=== PATIENT | male | born 1935 | race Caucasian/White ===

== ENCOUNTER 2017-02-21 14:38 | Emergency (ER) | payer MEDICARE, BC ==
[~2017-02-21] VITALS: Ht 180.3 cm; Wt 90.0 kg
[~2017-02-21 14:38] MED LIST: AVOD0.5C PO; DEXI60CA3 PO; DILA2TAB4 PO; FERR324T4 PO; LORA-392 PO; PRAV40TA PO; SULF-154 PO; TAMS0.4C67 PO; TOPR100T15 PO
[2017-02-21 14:41] VITALS: BP 137/69; PULSE 100; RESP 20; TEMP 97.6; O2SAT 95
--- NOTE | 2017-02-21 14:51 | PD ---
Physical Exam Time Seen by Provider: 14:51 Narrative 81 Y/O sent here by urgent care. he has a cough. he had an xray which shows "possible pleural effusion and enlarged aortic arch." Vital signs reviewed. Seen at triage desk. Awaiting bed placement. Data Data Last Documented VS Vital Signs Date Time Temp Pulse Resp B/P Pulse Ox O2 Delivery O2 Flow Rate FiO2 02/21/17 14:41 97.6 100 20 137/69 95 Room Air [facility] Medical Record Reviewed: Yes Supervised Visit with EZEQUIEL: Quentin Cleveland Feb 21, 2017 14:51
--- NOTE | 2017-02-21 16:18 | PD ---
HPI Chief Complaint: Respiratory Symptoms Time Seen by Provider: 16:15 Travel History International Travel<30 days: No Contact w/Intl Traveler<30days: No Traveled to known affect area: No History of Present Illness HPI 81-year-old male that presents to the ED for evaluation of congestion and shortness of breath. Per patient she's had cough and congestion for the past 2 weeks. Per patient he went to see an urgent care and was evaluated and was told that he possibly had pneumonia because his lungs sounded abnormal on his left lower quadrant. Per patient he was started on Levaquin at the time. He follow-up with his doctor who recommended another dose of Levaquin for 5 more days as well as prednisone. Per patient she chronically takes Ventolin because he has a history of asthma. He denies any chest pain. Per patient he went again today to see the urgent care as he continues to have this coughing spells and shortness of breath that don't really go away as well as the congestion and he had a chest x-ray and was told that there might be a pleural effusion as well as an abnormal or the on his chest x-ray. Patient was sent here for evaluation. He denies any medical issues. He denies any blood thinner use. No falls or injuries. No sick contacts. No fevers chills or sweats. No history of heart disease as far as he knows. He does have multiple allergies to medications. PFSH Past Medical History Arthritis: No Blood Disorders: No Anxiety: Yes Heart Rhythm Problems: Yes (TACHY) Cancer: Yes (COLON CURRENTLY) Cardiac Catheterization: Yes (DR ABDIRASHID CORONA) Cardiovascular Problems: Yes High Cholesterol: Yes Chemotherapy: No Diabetes: No Diminished Hearing: No Endocrine: No GERD: Yes Glaucoma: No Genitourinary: Yes Hepatitis: No Hiatal Hernia: No Hypertension: Yes Immune Disorder: No Implanted Vascular Access Dvce: Yes Musculoskeletal: No Neurologic: No Psychiatric: Yes Reproductive: No Respiratory: No Myocardial Infarction: Yes (CARDIAC ARREST DURING KNEE SURG) Radiation Therapy: No Thyroid Disease: No Past Surgical History Abdominal Surgery: Yes (LAP. DARREN) Cardiac Surgery: No Ear Surgery: No Endocrine Surgery: No Eye Surgery: No Genitourinary Surgery: Yes (PROSTATE THERM. RX) Gynecologic Surgery: No Joint Replacement: Yes (LEFT KNEE - ) Oral Surgery: No Pacemaker: No Thoracic Surgery: No Social History Alcohol Use: No Tobacco Use: No Substance Use: No Allergies-Medications (Allergen,Severity, Reaction): Coded Allergies: Meropenem (Unverified Allergy, Severe, 11/07/11) Penicillin (Unverified Allergy, Severe, PERIORAL SWELLING, 11/07/11) Percocet (Verified Allergy, Severe, 11/07/11) Lortab (Verified Allergy, Intermediate, SWOLLEN LIP, 11/07/11) Shellfish (Verified Allergy, Intermediate, SWOLLEN LIP, 11/07/11) Tobramycin (Verified Allergy, Intermediate, DIARRHEA, 11/07/11) ALL MYCINS Uncoded Allergies: mycins (Allergy, Intermediate, 05/07/08) Reported Meds & Prescriptions Reported Meds & Active Scripts Active Prednisone 20 Mg Tab 20 Mg PO BID Guaifenesin AC Liq (Guaifenesin-Codeine Liq) 100-10 Mg/5 Ml Syrp 5 Ml PO Q6H PRN Azithromycin 250 Mg Tab 250 Mg PO DIRECTED Take 2 tabs (500 mg) on day 1 then 1 tab daily x 4 days. Reported Septra Ds (Trimethoprim/Sulfamethoxazole) Tab 1 Tab PO BID Dilaudid (Hydromorphone HCl) 2 Mg Tab 2-4 Mg PO Q4HPRN Flomax (Tamsulosin HCl) 0.4 Mg Cap 0.4 Mg PO HS Ferrous Sulfate 325 Mg Tab 325 Mg PO DAILY Dexilant 60 mg (Dexlansoprazole) 60 Mg Cap 60 Mg PO DAILY Avodart (Dutasteride) 0.5 Mg Cap 0.5 Mg PO DAILY Ativan (Lorazepam) 0.5 Mg Tab 0.5 Tab PO Q6HPRN Pravachol 40 Mg Tab 40 Mg PO DAILY Toprol XL (Metoprolol Succinate) 100 Mg Tab 100 Mg PO DAILY Review of Systems Except as stated in HPI: all other systems reviewed are Neg Physical Exam Narrative GENERAL: Well-nourished, well-developed patient in no apparent distress. SKIN: Warm and dry. HEAD: Atraumatic. Normocephalic. EYES: Pupils equal and round reactive to light and accommodation. No scleral icterus. No injection or drainage. ENT: No nasal bleeding or discharge. Mucous membranes pink and moist. TMs are clear with no sign of infection or perforation. No mastoid tenderness. Ear canals are intact bilaterally. No lymphadenopathy. Nostril mucosa is red and moist with clear mucus noted. No sinus tenderness to palpation noted. Tonsils are not enlarged or swollen. No ulvua Deviation. Tongue is midline. NECK: Trachea midline. No JVD. No meningeal signs noted CARDIOVASCULAR: Regular rate and rhythm. RESPIRATORY: No accessory muscle use. Mild rales heard in the left lower lung field. Breath sounds equal bilaterally. GASTROINTESTINAL: Abdomen soft, non-tender, nondistended. Hepatic and splenic margins not palpable. MUSCULOSKELETAL: Extremities without clubbing, cyanosis, or edema. No obvious deformities. NEUROLOGICAL: Awake and alert. No obvious cranial nerve deficits. Motor grossly within normal limits. Five out of 5 muscle strength in the arms and legs. Normal speech. PSYCHIATRIC: Appropriate mood and affect; insight and judgment normal. Data Data Last Documented VS Vital Signs Date Time Temp Pulse Resp B/P Pulse Ox O2 Delivery O2 Flow Rate FiO2 02/21/17 16:33 Room Air 02/21/17 16:30 88 18 130/75 95 02/21/17 14:41 97.6 Orders Complete Blood Count With Diff (02/21/17 15:28) Basic Metabolic Panel (Bmp) (02/21/17 15:28) B-Type Natriuretic Peptide (02/21/17 15:28) Magnesium (Mg) (02/21/17 15:28) Chest, Single Ap (02/21/17 15:28) Labs Laboratory Tests Test 02/21/17 15:49 White Blood Count 7.0 TH/MM3 Red Blood Count 4.71 MIL/MM3 Hemoglobin 13.9 GM/DL Hematocrit 42.5 % Mean Corpuscular Volume 90.2 FL Mean Corpuscular Hemoglobin 29.5 PG Mean Corpuscular Hemoglobin 32.7 % Concent Red Cell Distribution Width 15.2 % Platelet Count 183 TH/MM3 Mean Platelet Volume 7.6 FL Neutrophils (%) (Auto) 74.1 % Lymphocytes (%) (Auto) 14.6 % Monocytes (%) (Auto) 7.4 % Eosinophils (%) (Auto) 3.2 % Basophils (%) (Auto) 0.7 % Neutrophils # (Auto) 5.2 TH/MM3 Lymphocytes # (Auto) 1.0 TH/MM3 Monocytes # (Auto) 0.5 TH/MM3 Eosinophils # (Auto) 0.2 TH/MM3 Basophils # (Auto) 0.0 TH/MM3 CBC Comment DIFF FINAL Differential Comment Sodium Level 140 MEQ/L Potassium Level 4.2 MEQ/L Chloride Level 108 MEQ/L Carbon Dioxide Level 24.6 MEQ/L Anion Gap 7 MEQ/L Blood Urea Nitrogen 14 MG/DL Creatinine 1.13 MG/DL Estimat Glomerular Filtration 62 ML/MIN Rate Random Glucose 99 MG/DL Calcium Level 8.5 MG/DL Magnesium Level 2.3 MG/DL B-Type Natriuretic Peptide 12 PG/ML MDM Medical Decision Making Medical Screen Exam Complete: Yes Emergency Medical Condition: Yes Medical Record Reviewed: Yes Interpretation(s) CBC & BMP Diagram 02/21/17 15:49 BNP WNL Last Impressions Chest X-Ray 02/21/17 1528 Signed Impressions: Service Date/Time: , February 21, 2017 15:53 - CONCLUSION: 1. Elevation of the left hemidiaphragm. 2. Mild cardiomegaly. 3. No acute focal pulmonary infiltrate or pulmonary vascular congestion. Danial Sandoval MD Differential Diagnosis Pneumonia versus pleural effusion versus bronchitis versus fell outpatient treatment versus normal exam Narrative Course 81-year-old male that presents to the ED for evaluation of shortness of breath and abnormal chest x-ray. Patient was properly examined and was found to have signs and symptoms of unclear etiology at this time. Does appear to be possible pneumonia. Patient was not given see ED to evaluate chest x-rays of the chest x-ray was ordered here. Labs were ordered. I suspect this may be bronchitis. Labs and imaging showed no sign of acute disease. Suspect this is bronchitis. Patient every try Levaquin for 10 days. We'll call her with azithromycin to cover for anything else. This time we'll give patient a prescription for Robitussin-AC, prednisone and told to continue taking his inhaler. Close follow with PCP. See ED for worsening symptoms. Vitals and physical exam here reassuring. Close follow up with PCP. Case discussed with my attending who agrees with plan. Diagnosis Primary Impression: Bronchitis Patient Instructions: General Instructions Additional Instructions: Motrin and Tylenol for pain and fever. You can use [id number] antihistamine as well as well as Mucinex as needed for runny nose and congestion. Cough drops for cough as needed. Drink plenty of fluids. Follow-up with PCP. See ED for worsening symptoms. Med/Other Pt SpecificInfo: Prescription(s) given Scripts Prednisone 20 Mg Tab20 Mg PO BID #10 TAB Prov:Jose Daniel Guerrier MD 02/21/17 Guaifenesin-Codeine Liq (Guaifenesin AC Liq)100-10 Mg/5 Ml Syrp5 Ml PO Q6H PRN ( COUGH) #1 BOTTLE Ref 0 Prov:Jose Daniel Guerrier MD 02/21/17 Azithromycin 250 Mg [id number] Mg PO DIRECTED #6 TAB Take 2 tabs (500 mg) on day 1 then 1 tab daily x 4 days. Prov:Jose Daniel Guerrier MD 02/21/17 Disposition: 01 DISCHARGE HOME Condition: Stable Maycol Roth Feb 21, 2017 16:18
[2017-02-21 16:25] LABS: AUTOMATED NEUTROPHIL # 5.2 TH/MM3 (1.8-7.7); BASOPHIL % 0.7 % (0.0-2.0); EOSINOPHIL # 0.2 TH/MM3 (0-0.4); EOSINOPHIL % 3.2 % (0.0-4.0); HEMATOCRIT 42.5 % (39.0-51.0); HEMO FLAGS DIFF FINAL; LYMPH % 14.6 % (9.0-44.0); MEAN CELL VOLUME 90.2 FL (80.0-100.0); MEAN CORPUSCULAR HEMOGLOBIN 29.5 PG (27.0-34.0); MEAN CORPUSCULAR HGB CONC 32.7 % (32.0-36.0); MONO % 7.4 % (0.0-8.0); NEUT % 74.1 % (16.0-70.0); PLATELET COUNT 183 TH/MM3 (150-450); RED BLOOD COUNT 4.71 MIL/MM3 (4.50-5.90); RED CELL DISTRIBUTION WIDTH 15.2 % (11.6-17.2)
[2017-02-21 16:30] VITALS: BP 130/75; PULSE 88; RESP 18; O2SAT 95
--- NOTE | 2017-02-21 16:43 | RADRPT ---
EXAM DATE/TIME: 02/21/2017 15:53 [facility] COMPARISON: No previous studies available for comparison. INDICATIONS : Cough, congestion, short of breath. MEDICAL HISTORY : None. SURGICAL HISTORY : None. ENCOUNTER: Initial ACUITY: 3 weeks PAIN SCORE: 0/10 LOCATION: Chest FINDINGS: There is elevation of the left hemidiaphragm. The heart is mildly prominent. The pulmonary vascular pattern is normal. The lungs are clear. CONCLUSION: 1. Elevation of the left hemidiaphragm. 2. Mild cardiomegaly. 3. No acute focal pulmonary infiltrate or pulmonary vascular congestion. Danial Sandoval MD on February 21, 2017 at 16:31 Board Certified Radiologist. This report was verified electronically.
[2017-02-21 16:48] LABS: BICARBONATE 24.6 MEQ/L (21.0-32.0); MAGNESIUM 2.3 MG/DL (1.5-2.5); POTASSIUM 4.2 MEQ/L (3.5-5.1)
[2017-02-21] MEDS ORDERED: GUAISYP4 PO (17:22)
[2017-02-21] MEDS ORDERED: AZIT250T3 PO (17:22)
[2017-02-21] MEDS ORDERED: PRED20 PO (17:22)
[2017-02-21 17:30] VITALS: BP 133/76; PULSE 88; RESP 18; O2SAT 95
[2017-02-21] MEDS ORDERED: FLUT1SPR5 EACH NARE (17:32)
[2017-02-21] MEDS ORDERED: DEXI60CA2 PO (17:32)
[2017-02-21] MEDS ORDERED: TAMS5CAP PO (17:32)
[2017-02-21] MEDS ORDERED: AVOD0.5C PO (17:32)
[2017-02-21] MEDS ORDERED: ALBU0.08 NEB (17:32)
[2017-02-21] MEDS ORDERED: LORA-373 PO (17:32)
[2017-02-21] MEDS ORDERED: METO25TA3 PO (17:32)
[2017-02-21] MEDS ORDERED: [UNRECOGNIZED DRUG - CODE] PO (17:32)
[2017-02-21] MEDS ORDERED: ATOR40TA16 PO (17:32)
[2017-02-21] MEDS ORDERED: MULTTAB67 PO (17:32)
[2017-02-21] MEDS ORDERED: ALBUS PO (17:37)
== END 2017-02-21 17:50 | disposition home or self-care (01) ==
LOC: NEPE 14:38
DX: J40 Bronchitis, not specified as acute or chronic (principal); I51.7 Cardiomegaly; F41.9 Anxiety disorder, unspecified; J45.909 Unspecified asthma, uncomplicated; E78.00 Pure hypercholesterolemia, unspecified; K21.9 Gastro-esophageal reflux disease without esophagitis; I10 Essential (primary) hypertension; I25.2 Old myocardial infarction; Z79.899 Other long term (current) drug therapy
CPT/HCPCS: 71010; 80048; 83735; 83880; 85025; 99284

== ENCOUNTER → 2017-05-17 | Outpatient (CLI) | payer MEDICARE, BC ==
[~2017-05-17] MED LIST changes: +ALBU0.08 NEB; +ALBUS PO; +ATOR40TA16 PO; +AZIT250T3 PO; +DEXI60CA2 PO; -DEXI60CA3 PO; -DILA2TAB4 PO; -FERR324T4 PO; +FLUT1SPR5 EACH NARE; +GUAISYP4 PO; +LORA-373 PO; -LORA-392 PO; +METO25TA3 PO; +MULTTAB67 PO; -PRAV40TA PO; +PRED20 PO; -SULF-154 PO; -TAMS0.4C67 PO; +TAMS5CAP PO; -TOPR100T15 PO; +[UNRECOGNIZED DRUG - CODE] PO
--- NOTE | 2017-05-20 14:04 | RSPPFT ---
DATE OF PROCEDURE: 05/17/17 COMMENTS: VOLUMES DYNAMIC: FVC mildly reduced; FEV1 moderately reduced. STATIC: FRC, TLC mildly reduced; RV normal. FLOWS: FEV1% moderately reduced; FEF 25-75 moderately reduced. DIFFUSION: Low normal. FLOW VOLUME LOOP: Obstructive configuration. IMPRESSION: Moderately severe obstructive ventilatory defect with a mild restrictive component and low normal diffusion. There is significant improvement post-bronchodilator.
== END ==
LOC: HRSP 13:10
PROVIDERS: ATTEND Internal Medicine
DX: J45.909 Unspecified asthma, uncomplicated (principal); R05 Cough
CPT/HCPCS: 94060; 94620; 94726; 94729; 95012